=== PATIENT | female | born 1930 | race Caucasian/White ===

== ENCOUNTER 2019-10-16 09:09 | Day surgery (SDC) | payer MEDICARE, BC ==
[2019-10-16] VITALS (11 sets, daily range): BP systolic 111–135; BP diastolic 63–81
[~2019-10-16] VITALS: Ht 172.7 cm; Wt 83.5 kg
[2019-10-16] MEDS ORDERED: normal saline 1000ml 1,000 ML IV SCH (09:45)
[2019-10-16] MEDS ORDERED: cefazolin/dext.iso 2gm/50ml 50 ML IV ONE (09:50)
[2019-10-16] MEDS ORDERED: NITR0.4T51 SL (10:33)
[2019-10-16] MEDS ORDERED: ASPI-10 PO (10:33)
[2019-10-16] MEDS ORDERED: MAGN100T5 PO (10:33)
[2019-10-16] MEDS ORDERED: LISI-604 PO (10:33)
[2019-10-16] MEDS ORDERED: SIMV-42 PO (10:33)
[2019-10-16] MEDS ORDERED: LEVO100T PO (10:33)
[2019-10-16] MEDS ORDERED: ceFAZolin 1000mg inj ONE (11:27)
[2019-10-16] MEDS ORDERED: fentaNYL/PF 50MCG/1 ML 2ML syringe ONE (11:27)
[2019-10-16] MEDS ORDERED: midazolam 2 mg/2 ml injection ONE (11:27)
[2019-10-16] MEDS ORDERED: LIDOcaine 1% W/epiNEPHrine 1:100,000 20ml vial ONE (11:27)
[2019-10-16 11:39] LABS: EOSINOPHILS # (AUTO) 0.1 X10'3 (0-0.9); EOSINOPHILS % (AUTO) 1.8 % (0-6); MONOCYTES # (AUTO) 0.4 X10'3 (0-0.9); WHITE BLOOD COUNT 4.3 X10'3 (4.5-11.0)
[2019-10-16 11:42] LABS: BASOPHILS % (AUTO) 0.5 % (0-1); HEMATOCRIT 40.2 % (35.0-45.0); HEMOGLOBIN 13.4 g/dl (12.0-16.0); LYMPHOCYTES # (AUTO) 1.1 X10'3 (1.1-4.8); LYMPHOCYTES % (AUTO) 26.2 % (21-51); MEAN CORPUSCULAR HGB CONC 33.4 g/dL (33.0-36.5); MEAN CORPUSCULAR VOLUME 89.6 FL (78-98); MEAN PLATELET VOLUME 10.9 FL (7.4-10.4); NEUTROPHILS # (AUTO) 2.7 X10'3 (1.8-7.7); NEUTROPHILS % (AUTO) 62.5 % (42-75); PLATELET COUNT 80 X10'3 (140-440); RED BLOOD COUNT 4.48 X10'6 (4.20-5.60); RED CELL DISTRIBUTION WIDTH 15.9 % (11.5-14.5)
[2019-10-16 11:45] LABS: ALBUMIN 2.9 G/DL (3.4-5.0); ANION GAP 8 (8-16); BLOOD UREA NITROGEN 48 MG/DL (7-18); BUN/CREATININE RATIO 47.5 (6.6-38.0); CALCIUM 9.3 MG/DL (8.5-10.1); CHLORIDE 111 MMOL/L (99-107); CREATININE 1.01 MG/DL (0.40-0.90); GLUCOSE 76 MG/DL (70-104); POTASSIUM 4.9 MMOL/L (3.5-5.1); SODIUM 144 MMOL/L (135-145); eGFR 52 ML/MIN
[2019-10-16 11:50] LABS: PARTIAL THROMBOPLASTIN TIME 35 SECONDS (22-32)
[2019-10-16 11:59] LABS: LARGE PLATELETS FEW; PLATELET ESTIMATE DECREASED
[2019-10-16] MEDS ORDERED: vancomycin/NS 1 GM ADD-VANTAGE 250 ML IV ONE (14:35)
[2019-10-16] MEDS ORDERED: HYDROcodone/acetaminophen 5mg/325mg tablet PO PRN (14:35)
[2019-10-16] MEDS ORDERED: HYDROcodone/acetaminophen 10/325mg tab PO PRN (14:35)
[2019-10-16] MEDS ORDERED: normal saline 1000ml 1,000 ML IV ONE (15:35)
== END 2019-10-16 19:30 | disposition home or self-care (01) ==
LOC: SSTAY O 09:09
PROVIDERS: ATTEND Internal Medicine Cardiovascular Disease
DX: I49.5 Sick sinus syndrome (principal); I10 Essential (primary) hypertension; E78.5 Hyperlipidemia, unspecified; I48.0 Paroxysmal atrial fibrillation; Z79.01 Long term (current) use of anticoagulants; I25.10 Atherosclerotic heart disease of native coronary artery without angina pectoris; E03.9 Hypothyroidism, unspecified; Z79.899 Other long term (current) drug therapy; Z98.890 Other specified postprocedural states; Z96.649 Presence of unspecified artificial hip joint; Z80.42 Family history of malignant neoplasm of prostate; Z80.8 Family history of malignant neoplasm of other organs or systems
CPT/HCPCS: 33208; 36415; 71046; 80048; 85025; 85610; 85730; 93005; 99152; 99153; C1785; C1898; J0690; J2250; J3010; J3370; J7030; A4565; A4620; C1894